=== PATIENT | male | born 1980 | race Caucasian/White ===

== ENCOUNTER 2021-01-31 19:08 | Inpatient (IN) | payer BC, SELFPAY ==
[~2021-01-31] VITALS: Ht 177.8 cm; Wt 95.3 kg
[2021-01-31 19:15] VITALS: BP_SYST 147
--- NOTE | 2021-01-31 20:30 | NUR ---
Placed in room 01 . Placed on panel monitor, blood pressure machine and pulse oximeter. To gown for exam. Side rails up. Report given to giovanni.
--- NOTE | 2021-01-31 20:30 | NUR ---
pt [facility] to [facility] pt was walking around the street with his daughter and felt a 6/10 pain to his chest. +sob. pt has been sob for about a month now. this is his worst episode he has had. pt has no hx of cardiac issues. a&ox4.
--- NOTE | 2021-01-31 20:43 | NUR ---
# 20 gauge angiocath placed to lac. Use of asceptic technique. Opsite placed over site. Blood return noted. Blood for lab drawn from site. Flushed with 10 cc of normal saline. No evidence of infiltration noted. Patient tolerated well.
[2021-01-31 21:07] LABS: BASOPHILS % (AUTO) 0.4 % (0.0-2.0); EOSINOPHILS # (AUTO) 0.1 K/uL (0.0-0.4); EOSINOPHILS % (AUTO) 1.3 % (0.0-4.0); HEMATOCRIT 44.3 % (36-54); HEMOGLOBIN 15.6 g/dL (14.0-18.0); LYMPHOCYTES # (AUTO) 2.2 K/uL (1.0-5.5); LYMPHOCYTES % (AUTO) 26.8 % (20.5-51.5); MEAN CORPUSCULAR HEMOGLOBIN 32 pg (27-31); MEAN CORPUSCULAR HGB CONC 35 % (32-36); MEAN CORPUSCULAR VOLUME 91 fL (79.0-98.0); MONOCYTES # (AUTO) 0.4 K/uL (0.0-1.0); MONOCYTES % (AUTO) 5.4 % (1.7-9.3); NEUTROPHILS # (AUTO) 5.4 K/uL (1.8-7.7); NEUTROPHILS % (AUTO) 66.1 % (40.0-70.0); PLATELET COUNT (AUTO) 266 K/uL (130-430); RED BLOOD CELL COUNT(AUTO) 4.88 MIL/uL (4.2-6.2); RED CELL DISTRIBUTION WIDTH 12.8 % (9.0-15.0); WHITE BLOOD COUNT (AUTO) 8.1 K/uL (4.8-10.8)
--- NOTE | 2021-01-31 21:07 | NUR ---
ER at bedside examining patient.
[2021-01-31 21:09] LABS: CALCIUM 8.8 mg/dL (8.4-11.0); CREATININE 1.05 mg/dL (0.55-1.30); POTASSIUM 3.8 mmol/L (3.5-5.1)
[2021-01-31 21:18] LABS: ALBUMIN 4.4 g/dL (3.4-4.8); TOTAL BILIRUBIN 0.1 mg/dL (0.0-1.0)
--- NOTE | 2021-01-31 21:25 | NUR ---
CRITICAL FOR PATIENT REPORTED
[2021-01-31] MEDS ORDERED: ASPIRIN 325 MG TABLET PO ONE (21:30)
--- NOTE | 2021-01-31 21:38 | NUR ---
XR AT BEDSIDE
--- NOTE | 2021-01-31 21:39 | NUR ---
Medication reconciliation completed with information provided by PATIENT. Any prior medication reconciliation on file was reviewed and corrected.
--- NOTE | 2021-01-31 21:39 | NUR ---
PT IS FULL CODE
[2021-01-31] MEDS ORDERED: NITROGLYCERIN 0.4 MG TAB.SUBL SL ONE (22:15)
--- NOTE | 2021-01-31 23:00 | NUR ---
Patient will be admitted to care of DR. TOLEDO. Admitted to TELE unit. Will go to room 100A. Belongings list completed. Complete and up to date summary report printed. SBAR report to be given at bedside with opportunity for questions.
--- NOTE | 2021-01-31 23:38 | NUR ---
Transfer to [facility] via ACLS protocol. Licensed nurse present. IV present no signs or symptoms of infiltration.
--- NOTE | 2021-01-31 23:45 | NUR ---
ADMISSION NOTE Received patient from ER via [facility], received report from Jonatan HUERTAS. Patient admitted with diagnosis of chest pain . Patient oriented to hospital routine, call light, toileting and safety-patient verbalized understanding.
[2021-02-01 00:07] VITALS: BP_SYST 129
--- NOTE | 2021-02-01 01:00 | NUR ---
PATIENT RESTING: Patient resting quietly. No acute distress noted. telemetry NSB drop to 50 the lowest HR while sleeping will monitor.
--- NOTE | 2021-02-01 01:18 | NUR ---
Consultation Paged Reason for Consultation: Chest Pain Was consult called: Y Person who was notified: Florencia Consulting Physician: Dr. Jesus Ordering Physician: Dr. Steele
[2021-02-01 06:19] VITALS: BP_SYST 120
--- NOTE | 2021-02-01 07:20 | NUR ---
OPENING NOTES: RECEIVED PATIENT FROM [facility] NURSE. PATIENT IS AWAKE, LAYING DOWN IN BED. TOLERATED OXYGEN ON ROOM AIR WITH NO DISTRESS OR SHORTNESS OF BREATH. IV LINE PATENT AND INTACT WITH NO INFILTRATION NOTED. PATIENT STABLE AT THIS TIME. SAFETY, FALL, AND ASPIRATION PRECAUTIONS ARE IN PLACE. BED LOCKED IN LOWEST POSITION AND CALL LIGHT IN REACH. WILL CONTINUE TO MONITOR PATIENT FOR ANY CHANGES.
[2021-02-01 08:00] VITALS: BP_SYST 131
--- NOTE | 2021-02-01 08:05 | NUR ---
DR. BENITEZ OKAYED PATIENT TO EAT BREAKFAST BEFORE TRANSFER TO [facility] FOR [facility]GIOGRAM.
[2021-02-01] MEDS ORDERED: HEPARIN SODIUM,PORCINE 5,000 UNITS/ML VIAL IVP ONE (08:15)
--- NOTE | 2021-02-01 08:30 | NUR ---
HIGH ALERT NOTE: Called Dr. Jesus back at identified within the medical roster to verify physician authenticity.
[2021-02-01] MEDS ORDERED: ASPIRIN 81 MG TAB.CHEW PO SCH (09:00)
--- NOTE | 2021-02-01 09:35 | NUR ---
DR. BENITEZ OKAYED TO GIVE HEPARIN IV PUSH.
[2021-02-01] MEDS ORDERED: HEPARIN SODIUM,PORCINE 5,000 UNITS/ML VIAL ONE (09:36)
--- NOTE | 2021-02-01 10:00 | NUR ---
CALLED [facility] TALKED TO RAJESH JEFFERSFURNACE KEEPER FOR BED ASSIGNMENT SO WE CAN ARRANGE AMBULANCE. RAJESH SAID SHE WILL CALL ME BACK FOR BED ASSIGNMENT
[2021-02-01 10:03] VITALS: BP_SYST 131
--- NOTE | 2021-02-01 10:37 | NUR ---
AMBULANCE ARRANGEMENT MADE [facility] CALED AT SPOKE MARIA DEL CARMEN SHULTZ TO PT AMBULANCE ON WILL CALL.
--- NOTE | 2021-02-01 11:33 | NUR ---
BED ASSIGNMENT [facility] CALLED AND INFORMED E PATIENT WILL GO TO ROOM 266A. [facility] CALLED SCHEDULED FOR A RESP THER TIME FOR 12;30 TO GO TO [facility].
[2021-02-01 12:00] VITALS: BP_SYST 123
--- NOTE | 2021-02-01 12:39 | NUR ---
CALLED AND SPOKE TO KELLY HUERTAS FROM [facility] AND GAVE REPORT. PATIENT WILL BE IN BE IN ROOM 266-A. IS AWARE ABOUT THE TRANSFER.
--- NOTE | 2021-02-01 14:00 | NUR ---
disposition 02 to [facility] for heart cath.
--- NOTE | 2021-02-01 14:10 | NUR ---
D/C Patient Patient given medication reconciliation form and D/C instructions. Exit Care provided. Patient verbalized understanding. MD discussed with patient the results and treatment provided. Ambulatory with steady gait for discharge to [facility] for higher level of care. Patient in stable condition, ID band removed. IV catheter removed, intact and dressing applied, no active bleeding. Patient educated on pain management. All belongings sent with patient.
== END 2021-02-01 14:10 | disposition short-term general hospital (02) | DRG 311 ==
LOC: SED 19:08 → STU 22:10
PROVIDERS: ADMIT Family Medicine; ATTEND Family Medicine
DX: I24.9 Acute ischemic heart disease, unspecified (principal); F17.290 Nicotine dependence, other tobacco product, uncomplicated; Z20.822 Contact with and (suspected) exposure to COVID-19; Z90.49 Acquired absence of other specified parts of digestive tract
CPT/HCPCS: 36415; 71045; 80053; 83880; 84484; 85025; 93005; 93306; 99285; G0378; J1644